=== PATIENT | female | born 1990 | race Caucasian/White ===

== ENCOUNTER 2018-02-14 08:18 | Emergency (ER) | payer OTHER ==
[~2018-02-14] VITALS: Ht 152.4 cm; Wt 77.1 kg
[2018-02-14] MEDS ORDERED: DAYTIME COLD-F118 ML PO (08:29)
[2018-02-14] MEDS ORDERED: ALLEGRA-D 24 H1 EACH PO (08:35)
[2018-02-14] MEDS ORDERED: AMOXICILLIN 50500 MG PO (08:35)
[2018-02-14 08:42] VITALS: BP 149/95
== END 2018-02-14 08:43 | disposition home or self-care (01) ==
LOC: M.ERS 08:18
DX: J06.9 Acute upper respiratory infection, unspecified (principal); F17.210 Nicotine dependence, cigarettes, uncomplicated